=== PATIENT | female | born 1980 | race Caucasian/White ===

== ENCOUNTER 2019-04-18 14:16 | Emergency (ER) | payer OTHER ==
[~2019-04-18] VITALS: Ht 162.6 cm; Wt 82.6 kg
[2019-04-18 14:30] VITALS: BP 135/76
--- NOTE | 2019-04-18 14:30 | NUR ---
PATIENT AMBULATED TO ER BED 7.
--- NOTE | 2019-04-18 14:40 | NUR ---
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 TOOK TYELENOL AT HOME. STATES TO HAVE PAIN 6/10 AT THIS TIME. HAS MILD REDNESS IN HER EYE, NO SWELLING , BRUISE NOTED. DENIES ANY DIFFICULTY IN SEEING AT THIS TIME. BOTH PUPIL ARE REACTIVE EQUALLY. ER MD TO SEE THE PT. DENIES [facility]
--- NOTE | 2019-04-18 15:32 | NUR ---
AT THE BEDSIDE , EVALUATING PT.
--- NOTE | 2019-04-18 16:05 | NUR ---
DR. LE [employer] TO EVALUATE PATIENT.
--- NOTE | 2019-04-18 16:08 | NUR ---
VISUAL ACUITY R 20/30 L 20/30 BOTH 20/25
--- NOTE | 2019-04-18 16:11 | NUR ---
Tatiana smith in EDM - 04/18/19 at 1637 by [facility] PUT THE EYE DROP TETRACAINE HCL 2 DROPS ON PTS RT EYE PER VERBAL ORDER.
--- NOTE | 2019-04-18 16:11 | NUR ---
ADMINISTER THE EYE DROP TETRACAINE HCL 2 DROPS ON PTS RT EYE PER MD VERBAL ORDER. MD MADE AWARE.
[2019-04-18] MEDS ORDERED: FLUORESCEIN OPTH STRIP 0.6 MG ONE (16:17)
[2019-04-18] MEDS ORDERED: TETRACAINE HCL/PF 0.5% OPTH 4 ML BTL ONE (16:18)
[2019-04-18] MEDS ORDERED: TETRACAINE HCL/PF 0.5% OPTH 4 ML BTL OP ONE (16:55)
[2019-04-18] MEDS ORDERED: FLUORESCEIN OPTH STRIP 0.6 MG OP ONE (16:55)
[2019-04-18 17:00] VITALS: BP 135/76
--- NOTE | 2019-04-18 17:00 | NUR ---
Patient discharged with v/s stable. Written and verbal after care instructions given and explained. Patient alert, oriented and verbalized understanding of instructions. Ambulatory with steady gait. All questions addressed prior to discharge. ID band removed. Patient advised to follow up with PMD. Rx of ERYTHROMYCIN given. Patient educated on indication of medication including possible reaction and side effects. Opportunity to ask questions provided and answered.
== END 2019-04-18 17:00 | disposition home or self-care (01) ==
LOC: MED 14:16
DX: H57.11 Ocular pain, right eye (principal)
CPT/HCPCS: 99283